=== PATIENT | male | born 1985 | race Two or more races ===

== ENCOUNTER 2024-01-04 16:33 | Inpatient (IN) | payer MEDICAID, OTHER ==
[~2024-01-04] VITALS: Ht 170.2 cm; Wt 162.3 kg
[2024-01-04 17:08] LABS: Basophils # (auto) 0.1 10 ^3/uL (0-0.2); Basophils % (auto) 0.8 % (0.0-2.0); Eosinophils # (auto) 0.3 10 ^3/uL (0-0.8); Eosinophils % (auto) 2.7 % (0.0-7.0); Hematocrit 43.9 % (41.0-53.0); Hemoglobin 14.9 g/dL (13.5-17.5); Lymphocytes # (auto) 3.6 10 ^3/uL (0.4-5.4); Mean Corpuscular Hemoglobin 29.5 pg (28.0-32.0); Mean Corpuscular Hgb Conc. 33.9 g/dL (32.0-36.0); Mean Corpuscular Volume 87.1 fL (80.0-100.0); Monocytes # (auto) 0.7 10 ^3/uL (0-1.3); Monocytes % (auto) 6.5 % (0.0-12.0); Neutrophils # (auto) 6.4 10 ^3/uL (1.6-8.6); Nucleated Red Blood Cells % 0.1 %; Platelet Count (auto) 307 10^3/uL (140-450); Red Blood Cells 5.04 10^6/uL (4.5-5.90); White Blood Cell 11.1 10^3/uL (4.4-10.8)
[2024-01-04 17:18] LABS: Chloride 105 mmol/L (98-107); Sodium 139 mmol/L (136-145)
[2024-01-04 17:19] LABS: Anion Gap 7 (5-15); Carbon Dioxide 27 mmol/L (20-31)
[2024-01-04 17:20] LABS: Calcium 9.8 mg/dL (8.7-10.4)
[2024-01-04 17:24] LABS: BUN/Creatinine Ratio 11.1 (10.0-20.0); Blood Urea Nitrogen 11 mg/dL (9-23); Glucose 108 mg/dL (74-106)
[2024-01-04 18:08] VITALS: PULSE 105; RESP 16; O2SAT 97
[2024-01-04] MEDS ORDERED: DOCUSATE SOD 100 MG CAP PO PRN (19:00)
[2024-01-04] MEDS ORDERED: NITROGLYCERIN 0.4 MG SL TAB SL PRN (19:00)
[2024-01-04] MEDS ORDERED: ONDANSETRON HCL 4 MG/2 ML VIAL IV PRN (19:00)
[2024-01-04] MEDS ORDERED: MORPHINE SULFATE INJ 2 MG/ml SYRG IV PRN (19:00)
[2024-01-04] MEDS: SODIUM CHLORIDE 0.9% 1,000 ML IV ONE (19:01)
[2024-01-04] MEDS: methylPREDNISolone SOD SUCC 125 MG/2 ML VL IV ONE (19:02)
[2024-01-04] MEDS: EPINEPHrine HCL 1 MG/1 ML AMP SC ONE (19:02)
[2024-01-04] MEDS: diphenhdrAMINE HCL 50 MG/1 ML VL IV ONE (19:02)
[2024-01-04] MEDS ORDERED: IPRATROPIUM BROM 0.5 MG/2.5ML INH SOL NEB PRN (19:15)
[2024-01-04] MEDS ORDERED: ALBUTEROL SULF 2.5 MG/0.5ML(0.5%) NEB SOLN NEB PRN (19:15)
[2024-01-04 19:20] VITALS: PULSE 108; RESP 14; O2SAT 96
[2024-01-04] MEDS: SODIUM CHLORIDE 0.9% 1,000 ML IV SCH (19:30)
[2024-01-04] MEDS: ENOXAPARIN SOD 40 MG/0.4 ML SYRINGE SC SCH (19:51)
[2024-01-04] MEDS: PANTOPRAZOLE 40 MG/10 ML VIAL INJ IV ONE (19:53)
[2024-01-04] MEDS: ALBUTEROL SULF 2.5 MG/0.5ML(0.5%) NEB SOLN NEB ONE (19:57)
[2024-01-04] MEDS: IPRATROPIUM BROM 0.5 MG/2.5ML INH SOL NEB ONE (19:57)
[2024-01-04 20:40] VITALS: BP 158/92; PULSE 100; RESP 18; TEMP 98.2; O2SAT 96
[2024-01-04] MEDS: methylPREDNISolone SOD SUCC 125 MG/2 ML VL IV SCH (21:53)
[2024-01-04 22:46] VITALS: BP 155/86; PULSE 104; RESP 18; TEMP 98.8; O2SAT 93
[2024-01-05] VITALS (7 sets, daily range): BP systolic 114–135; BP diastolic 63–80; PULSE 89–111; RESP 16–18; TEMP 97.5–98.1; O2SAT 93–97
[2024-01-05] MEDS: diphenhdrAMINE HCL 50 MG/1 ML VL IV SCH (00:46)
[2024-01-05] MEDS ORDERED: BACL10TA PO (01:47)
[2024-01-05] MEDS ORDERED: DICL75TA3 PO (01:47)
[2024-01-05] MEDS ORDERED: FLUT100A7 IN (01:47)
[2024-01-05 06:41] LABS: Basophils # (auto) 0 10 ^3/uL (0-0.2); Basophils % (auto) 0.1 % (0.0-2.0); Eosinophils # (auto) 0 10 ^3/uL (0-0.8); Hemoglobin 14.9 g/dL (13.5-17.5); Lymphocytes # (auto) 1.9 10 ^3/uL (0.4-5.4); Mean Corpuscular Hemoglobin 29.2 pg (28.0-32.0); Mean Corpuscular Hgb Conc. 33.2 g/dL (32.0-36.0); Mean Corpuscular Volume 87.9 fL (80.0-100.0); Monocytes # (auto) 0.1 10 ^3/uL (0-1.3); Monocytes % (auto) 0.6 % (0.0-12.0); Neutrophils # (auto) 10.4 10 ^3/uL (1.6-8.6); Neutrophils % (auto) 84.3 % (37.0-80.0); Platelet Count (auto) 329 10^3/uL (140-450); Red Blood Cells 5.12 10^6/uL (4.5-5.90); Red Cell Distribution Width 15.1 % (11.8-14.3); White Blood Cell 12.3 10^3/uL (4.4-10.8)
[2024-01-05 06:58] LABS: Alanine Aminotransferase 50 U/L (7-40); Albumin 4.9 g/dL (3.2-4.8); Alkaline Phosphatase 99 U/L (46-116); Anion Gap 7 (5-15); Aspartate Aminotransferase 26 U/L (13-40); BUN/Creatinine Ratio 9.7 (10.0-20.0); Blood Urea Nitrogen 9 mg/dL (9-23); Calcium 9.5 mg/dL (8.7-10.4); Carbon Dioxide 26 mmol/L (20-31); Chloride 107 mmol/L (98-107); Glucose 144 mg/dL (74-106); Potassium 3.9 mmol/L (3.5-5.1); Sodium 140 mmol/L (136-145)
[2024-01-05 06:59] LABS: Bilirubin, Total 0.6 mg/dL (0.2-1.0); Total Protein 7.8 g/dL (5.7-8.2)
[2024-01-05] MEDS: PANTOPRAZOLE 40 MG/10 ML VIAL INJ IV SCH (10:00)
[2024-01-06 09:11] LABS: Hepatitis B Surface Antibody Positive (Negative)
[2024-01-06 09:23] LABS: Hepatitis B Surface Antigen Negative (Negative)
[2024-01-06 09:45] LABS: Hepatitis C Antibody Negative (Negative)
== END 2024-01-05 15:23 | disposition home or self-care (01) | DRG 811 ==
LOC: ER 16:33 → OVERFLOW 18:51 → EAST 18:55
PROVIDERS: ADMIT Nurse Practitioner Family; ATTEND Nurse Practitioner Family
DX: T78.40XA Allergy, unspecified, initial encounter (principal); Z68.43 Body mass index [BMI] 50.0-59.9, adult; D72.829 Elevated white blood cell count, unspecified; J45.909 Unspecified asthma, uncomplicated; Z79.899 Other long term (current) drug therapy; Y84.8 Other medical procedures as the cause of abnormal reaction of the patient, or of later complication, without mention of misadventure at the time of the procedure; Y92.89 Other specified places as the place of occurrence of the external cause
CPT/HCPCS: 36415; 71045; 80048; 80053; 85025; 86003; 86160; 86706; 86803; 87340; 94640; 96361; 96372; 96374; 96375; 99291; G0378; J0171; J2470